=== PATIENT | male | born 2000 | race Caucasian/White ===

== ENCOUNTER 2024-05-14 18:35 | Emergency (ER) | payer BC, SELFPAY ==
[2024-05-14 18:49] VITALS: BP 155/94; PULSE 67; RESP 16; TEMP 36.9; O2SAT 99; BMI 22.4
--- NOTE | 2024-05-14 19:46 | ED.GENADULT ---
HPI - General Adult General Date Seen: 05/14/24 Chief complaint: Dental/Oral/Mouth Injury/Pain Stated complaint: Bottom L tooth pain Time Seen by Provider: 05/14/24 19:40 History of Present Illness HPI narrative: 24 yo M with h/o ADHD (adderall) but otherwise generally healthy presenting to the ER today with his fimarke for evaluation of left mandibular toothache and jaw pain. He has a known history of dental caries in the front molar on his left mandible. He had a filling done there about 8 months ago and was told that he needs to follow up with an product development coordinator for a root canal (but never followed up). He has been having sporadic pain in that tooth for the past couple of weeks and more severe and persistent pain for the past couple of days. He has already contacted his dentist and has an appointment tomorrow morning at 7:00 a.m. with an product development coordinator. He has been trying to control his pain with over [id number] medications but they are not very effective since yesterday. He has not had any fever or chills. No swelling of his face or under his jaw. No trouble opening or closing his mouth. No trouble swallowing. No trouble breathing. He is not diabetic or immunosuppressed. Related Data Previous Rx's ?Medication ?Instructions ?Recorded dextroamphetamine-amphetamine ER 20 mg PO QAM #30 caps 05/13/24 20 mg 24hr capsule,extend release Allergies Allergy/AdvReac Type Severity Reaction Status Date / Time No Known Drug Allergies Allergy Verified 01/15/24 08:16 [facility] Family History (Updated 12/27/23 @ 12:47 by Sowmya Acosta) Mother ADD (attention deficit disorder) Father ADD (attention deficit disorder) Social History (Updated 01/01/24 @ 11:09 by Belen Butt~[facility], [facility]) What is your current living situation?: I presently have a place to live Problems where you live: no known problems In the past 12 months, utilities in danger of being shut off: no In past 12 months, lack of transportation kept you from medical appts, meetings, work, or getting things needed for daily living: no In the past 12 mos, have been you worried that your food would run out before you had money to buy more?: never true In the past 12 mos, the food you bought just didn't last and you didn't have money to buy more?: never true Smoking Status: Never smoker Do you use any of these nicotine containing products: Smokeless Tobacco How often do you have a drink containing alcohol: 2-3 times a week AUDIT-C Alcohol total score: 3 Non-prescribed substance use: denies use How often does anyone, including family, friends and others, physically hurt you: never How often does anyone, including family, friends and others, insult or talk down to you: rarely How often does anyone, including family, friends and others, threaten you with harm: never How often does anyone, including family, friends and others, scream or curse at you: never Little interest or pleasure in doing things: several days Feeling down, depressed, or hopeless: not at all Exam Narrative: Exam Narrative: Constitutional: Appears well-developed and well-nourished. Alert. Conversant. Non toxic. HENT: Head: Atraumatic. Nose: Nose normal. Mouth/Throat: Oral mucosa is clear and moist. no trismus. Pharynx normal. Tonsils symmetric. No tonsillar enlargement, erythema, or exudate. Generally good dentition. He is having pain involving the left mandibular 1st molar. No surrounding gingival erythema. No gingival abscess. No submandibular swelling. Tongue normal. No trismus. Posterior oropharynx patent. Tonsils normal. No stridor. Breathing easily. Eyes: Conjunctivae normal. EOM normal. Pupils equal, round, and reactive to light. No scleral icterus. Neck: Normal range of motion. Neck supple. No tracheal deviation present. Cardiovascular: Normal rate, regular rhythm. No gallop. No friction rub. No murmur heard. Pulmonary/Chest: Effort normal. No stridor. No respiratory distress. No wheezes. No rales. No rhonchi . Musculoskeletal: RUE: Normal range of motion. No tenderness. No deformity LUE: Normal range of motion. No tenderness. No deformity RLE: Normal range of motion. No edema. No tenderness. No deformity LLE: Normal range of motion. No edema. No tenderness. No deformity Lymph: No cervical adenopathy. Neurological: Alert and oriented to person, place, and time. Normal strength. CN II-VII intact. No sensory deficit. GCS eye subscore is 4. GCS verbal subscore is 5. GCS motor subscore is 6. Normal coordination Skin: Skin is warm and dry. No rash noted. No pallor. Normal capillary refill. Psychiatric: Normal mood. Normal affect. Const: Vital Signs, click to edit/add: Vital Signs - 24 hr 05/14/24 18:49 Temperature 98.4 F Pulse Rate [Pulse Oximeter] 67 Respiratory Rate 16 Blood Pressure [Ri ght Upper Arm] 155/94 H Pulse Oximetry 99 Course Course ED Course: Patient seen and evaluated in ER room 5. Discussed options for analgesia. He would like to go ahead with a dental block. Discussed risks and benefits of inferior alveolar nerve block. Patient gave verbal consent. Procedure: Left mandibular inferior alveolar nerve block Indication: Dental pain involving tooth number 19 (1st molar on left mandible). Procedure: Patient was appropriately positioned. Identified appropriate landmarks. Using careful technique we infiltrated a total of 2 mL of 0.5% bupivacaine with epi. Aspiration confirmed no intravascular injection. Patient had partial anesthesia with numbness of his tongue and cheek but still some discomfort involving that tooth. No complications such as hematoma, intravascular injection, or swelling were noted. Vital Signs Vital signs: Initial Vital Signs Temperature 98.4 F 05/14/24 18:49 Temperature Source Temporal Artery Scan 05/14/24 18:49 Pulse Rate 67 05/14/24 18:49 Respiratory Rate 16 05/14/24 18:49 Blood Pressure 155/94 H 05/14/24 18:49 Blood Pressure Mean 114 H 05/14/24 18:49 Blood Pressure Position Sitting 05/14/24 18:49 Pulse Oximetry 99 05/14/24 18:49 Vital Signs Temperature 98.4 F 05/14/24 18:49 Pulse Rate 67 05/14/24 18:49 Respiratory Rate 16 05/14/24 18:49 Blood Pressure 155/94 H 05/14/24 18:49 Pulse Oximetry 99 05/14/24 18:49 Temperature 98.4 F 05/14/24 18:49 Pulse Rate 67 05/14/24 18:49 Respiratory Rate 16 05/14/24 18:49 Blood Pressure 155/94 H 05/14/24 18:49 Pulse Oximetry 99 05/14/24 18:49 Medical Decision Making MDM Narrative Medical decision making narrative: This patient presents with a tooth ache. The differential diagnosis includes: cracked tooth syndrome, pulpitis, sub-apical abscess, amongst others. There is no abscess detected around the tooth amenable to incision and drainage. There is no evidence of buccinator/canine space infections, significant facial swelling, or Steve's angina. There are no posterior pharyngeal space infections detected. Suspect pulpitis. Treatment with NSAID, antibiotics. Instymeds prescription for [place] provided. Opiate precautions reviewed. Follow up with a dentist/product development coordinator in the coming days is indicated for further work up and treatment. Instructions for return to the ER were reviewed with the patient. Discharge Plan Discharge Clinical Impression: Toothache, Jaw pain Patient Disposition: Home, Self-Care Condition: Stable Instructions: Toothache (ED) Additional Instructions: As we discussed, you can use Tylenol or ibuprofen if needed for your to toothache. If you have pain uncontrolled by that use the prescription pain killer ([place]). Be careful with [place] because it causes dizziness, drowsiness, constipation, and can be addictive. Do not drive for 6 hours after taking [place]. Monitor for signs of infection. If your developing redness or swelling of your gums cheek, or under your jaw, develop a fever or chills, or having trouble swallowing or breathing, please come back to the ER right away. Please recheck with your dentist/product development coordinator tomorrow morning. Prescriptions: No Action dextroamphetamine-amphetamine 20 mg capsule,extended release 24hr 20 mg PO QAM Qty: 30 0RF Follow Up/Referrals: Kelvin Bradshaw MD [Primary Care Provider] - Stand Alone Forms: [employer] Info Instructions
== END 2024-05-14 21:06 | disposition home or self-care (01) ==
PROVIDERS: Emergency Provider Emergency Medicine; PCP Family Medicine
DX: R68.84 Jaw pain (principal); K08.89 Other specified disorders of teeth and supporting structures
CPT/HCPCS: 64400; 99282; 99283